=== PATIENT | male | born 1945 | race Caucasian/White ===

== ENCOUNTER → 2016-06-29 | Outpatient (CLI) | payer MEDICARE, BC | LOC: MW.CHUR 08:00 | PROVIDERS: ATTEND Urology | DX: R33.9 Retention of urine, unspecified (principal) | CPT/HCPCS: 51798; G0463 ==

== ENCOUNTER → 2016-07-03 | Outpatient (CLI) | payer MEDICARE, BC | LOC: MW.CHUR 09:55 | PROVIDERS: ATTEND Urology | DX: R33.9 Retention of urine, unspecified (principal) | CPT/HCPCS: 87086; 87088; 87186 ==

== ENCOUNTER 2022-09-30 14:51 | Emergency (ER) | payer MEDICARE, BC ==
[2022-09-30 16:02] LABS: APPEARANCE,URINE CLEAR; BILIRUBIN,URINE NEGATIVE (NEGATIVE); COLOR,URINE YELLOW; GLUCOSE,URINE NEGATIVE (NEGATIVE); KETONES,URINE NEGATIVE (NEGATIVE); LEUKOCYTE ESTERASE,URINE NEGATIVE (NEGATIVE); NITRITE,URINE NEGATIVE (NEGATIVE); OCCULT BLOOD,URINE MODERATE (NEGATIVE); PROTEIN,URINE NEGATIVE (NEGATIVE); UROBILINOGEN,URINE 0.2 EU/dL (<2.0)
[2022-09-30 16:09] VITALS: BP 130/83; PULSE 77
[2022-09-30 16:15] LABS: BACTERIA,URINE NOT SEEN (NEGATIVE); EPITHELIAL CELLS,URINE NOT SEEN (NONE-FEW); WBC,URINE NONE SEEN (0-5/HPF)
== END 2022-09-30 16:09 | disposition home or self-care (01) ==
LOC: MW.ED 14:51
DX: T83.091A Other mechanical complication of indwelling urethral catheter, initial encounter (principal); I10 Essential (primary) hypertension; Z87.891 Personal history of nicotine dependence; Z88.8 Allergy status to other drugs, medicaments and biological substances; Z88.1 Allergy status to other antibiotic agents; Z91.011 Allergy to milk products; Z91.012 Allergy to eggs; Z91.018 Allergy to other foods; Z79.899 Other long term (current) drug therapy
CPT/HCPCS: 81001; 99283

== ENCOUNTER 2022-10-01 08:20 | Emergency (ER) | payer MEDICARE, BC ==
[2022-10-01 09:23] VITALS: BP 128/81; PULSE 81
== END 2022-10-01 09:22 | disposition home or self-care (01) ==
LOC: MW.ED 08:20
DX: R33.9 Retention of urine, unspecified (principal); I10 Essential (primary) hypertension; Z91.012 Allergy to eggs; Z91.018 Allergy to other foods; Z88.1 Allergy status to other antibiotic agents
CPT/HCPCS: 51702; 99283

== ENCOUNTER 2023-12-23 19:02 | Emergency (ER) | payer MEDICARE, BC ==
[2023-12-23 19:47] VITALS: BP 141/73; PULSE 95
== END 2023-12-23 19:45 | disposition home or self-care (01) ==
LOC: MW.ED 19:02
DX: T18.128A Food in esophagus causing other injury, initial encounter (principal); Z91.012 Allergy to eggs; Z91.018 Allergy to other foods; Z88.8 Allergy status to other drugs, medicaments and biological substances; Z79.899 Other long term (current) drug therapy; Z87.891 Personal history of nicotine dependence; W44.F3XA Food entering into or through a natural orifice, initial encounter
CPT/HCPCS: 99282; 99283

== ENCOUNTER 2023-12-31 09:16 | Day surgery (SDC) | payer MEDICARE, BC ==
[2023-12-31] MEDS: Lactated Ringers 1,000 ML IV SCH (09:46)
[2023-12-31] MEDS ORDERED: Lidocaine 4% 5 ML Amp ONE (10:53)
[2023-12-31] MEDS ORDERED: Propofol 200 MG/20 ML SDV ONE (10:54)
[2023-12-31] MEDS ORDERED: fentaNYL 100 MCG/2 ML SDV ONE (11:07)
[2023-12-31] MEDS ORDERED: Lactated Ringers 1,000 ML IV SCH (11:45)
[2023-12-31 12:31] VITALS: BP 161/97; PULSE 74
== END 2023-12-31 12:05 | disposition home or self-care (01) ==
LOC: MW.SDS 09:16
PROVIDERS: ATTEND Surgery
DX: K22.2 Esophageal obstruction (principal); K29.50 Unspecified chronic gastritis without bleeding; K20.90 Esophagitis, unspecified without bleeding; K44.9 Diaphragmatic hernia without obstruction or gangrene; I10 Essential (primary) hypertension; E78.00 Pure hypercholesterolemia, unspecified; Z87.891 Personal history of nicotine dependence; J45.909 Unspecified asthma, uncomplicated; Z79.899 Other long term (current) drug therapy
CPT/HCPCS: 43239; 43249; C1726; J2704; J3010; J7120; 00731; 88305; 99100; J3490

== ENCOUNTER 2024-11-14 06:50 | Day surgery (SDC) | payer MEDICARE, BC ==
[2024-11-14] MEDS: Lactated Ringers 1,000 ML IV SCH (07:18)
[2024-11-14] MEDS ORDERED: Propofol 200 MG/20 ML SDV ONE (07:22)
[2024-11-14] MEDS ORDERED: dexmedeTOMIDine HCl 200 MCG/2 ML SDV ONE (07:33)
[2024-11-14] MEDS ORDERED: Lactated Ringers 1,000 ML IV SCH (08:30)
[2024-11-14 10:53] VITALS: BP 104/66; PULSE 62
== END 2024-11-14 09:25 | disposition home or self-care (01) ==
LOC: MW.SDS 06:50
PROVIDERS: ATTEND Surgery
DX: K29.50 Unspecified chronic gastritis without bleeding (principal); K31.A11 Gastric intestinal metaplasia without dysplasia, involving the antrum; K20.0 Eosinophilic esophagitis; K22.70 Barrett's esophagus without dysplasia; E78.00 Pure hypercholesterolemia, unspecified; I10 Essential (primary) hypertension; Z88.8 Allergy status to other drugs, medicaments and biological substances; Z79.84 Long term (current) use of oral hypoglycemic drugs; Z79.899 Other long term (current) drug therapy; Z87.891 Personal history of nicotine dependence
CPT/HCPCS: 43239; J2003; J2704; J7120; 00731; 88305; 88342; 99100